=== PATIENT | female | born 2000 | race Caucasian/White ===

== ENCOUNTER 2023-08-24 14:02 | Emergency (ER) | payer OTHER, SELFPAY ==
--- NOTE | ~2023-08-24 | XR_ITS ---
EXAMINATION: XR chest 2V Exam Date/Time: 08/24/2023 15:12 [employer] SPECIALIST HISTORY: palpitations Comparison: None. RESULT: Lines, tubes, and devices: Bilateral breast implants. Lungs and pleura: Clear. Cardiomediastinal silhouette: Normal. Other: No acute osseous or upper abdominal finding. IMPRESSION: No acute cardiopulmonary process. Reviewed, dictated and finalized at location K. SPECIALIST
[2023-08-24 14:05] VITALS: BP 113/71; PULSE 81; RESP 16; TEMP 36.6; O2SAT 100
--- NOTE | 2023-08-24 15:07 | ECG_ITS ---
Measurements Intervals [place] Rate: 80 P: -2 MT: 137 QRS: 51 QRSD: 94 T: 45 QT: 355 QTc: 410 Interpretive Statements SINUS RHYTHM WITH SINUS ARRHYTHMIA NORMAL ECG NO PREVIOUS ECG AVAILABLE FOR COMPARISON Electronically Signed On 08-24-2023 19:18:10 [employer]ISUAL AND ST[employer] ASSOCIATE by Chad Ruiz D.O.
--- NOTE | 2023-08-24 15:32 | ED.GENADULT ---
HPI - General Adult General Chief complaint: Anxiety Stated complaint: anxiety attack Time Seen by Provider: 08/24/23 14:56 History of Present Illness HPI narrative: Patient is a 23-year-old female who presents ER with palpitations. Patient was driving when she started to feel things build up. She felt her heart racing and felt tingling across her body. Short duration. She pulled over. She had something similar happen to her 2 days ago. She has not had issues with this in the past. No history of anxiety. Denies any new stressors at home or work. Denies any change to her sleep pattern. Denies excessive use of stimulants. Reports family history of her father having his heart shocked but unknown as to why. Related Data Allergies Allergy/AdvReac Type Severity Reaction Status Date / Time No Known Allergies Allergy Verified 08/24/23 15:32 Review of Systems Review of Systems: All systems reviewed & are unremarkable except as noted in HPI and below Constitutional: Constitutional: Denies chills, Denies fatigue and Denies fever(s) ENT: Denies nasal congestion and Denies sore throat Cardiovascular: Cardiovascular: Denies chest pain, Reports rapid heart rate and Denies radiating jaw, neck or arm pain Respiratory: Respiratory: Denies cough, Denies dyspnea and Denies wheezing Gastrointestinal: Gastrointestinal: Denies abdominal pain, Denies nausea and Denies vomiting Neurologic: Denies focal weakness, Denies numbness and Denies weakness Comments: Tingling to the whole body. Psychiatric: Psychiatric: Denies anxiety and Denies depression PMF Past Medical History Medical History (Updated 08/24/23 @ 16:45 by Atul Payne MD) Healthy female adult Surgical History Surgical History (Updated 08/24/23 @ 15:35 by Atul Payne MD) History of breast augmentation Course Course Emergency Course: Patient resting comfortably. Labs/imaging/EKG all normal. Recommend follow-up with her primary care physician. Should symptoms recur she may need a Holter monitor. She has been educated in regards to this. Vital Signs Vital signs: Vital Signs Temperature 97.9 F 08/24/23 14:05 Pulse Rate 81 08/24/23 14:05 Respiratory Rate 16 08/24/23 14:05 Blood Pressure 113/71 08/24/23 14:05 Pulse Oximetry 100 08/24/23 14:05 Temperature 97.9 F 08/24/23 14:05 Pulse Rate 81 08/24/23 14:05 Respiratory Rate 16 08/24/23 14:05 Blood Pressure 113/71 08/24/23 14:05 Pulse Oximetry 100 08/24/23 14:05 Medical Decision Making Vital Signs Vital Signs: Vital Signs Temperature 97.9 F 08/24/23 14:05 Pulse Rate 81 08/24/23 14:05 Respiratory Rate 16 08/24/23 14:05 Blood Pressure 113/71 08/24/23 14:05 Pulse Oximetry 100 08/24/23 14:05 Temperature 97.9 F 08/24/23 14:05 Pulse Rate 81 08/24/23 14:05 Respiratory Rate 16 08/24/23 14:05 Blood Pressure 113/71 08/24/23 14:05 Pulse Oximetry 100 08/24/23 14:05 Lab Data 08/24/23 15:38 08/24/23 15:38 Labs: Lab Results 08/24/23 Range/Units 15:38 WBC 7.3 (4.5-10.0) K/mm3 RBC 4.89 (4.2-5.4) M/mm3 Hgb 13.4 (12.0-15.0) g/dL Hct 40.9 (37.0-47.0) % MCV 83.6 (80-100) fl MCH 27.4 (26-34) pg MCHC 32.8 (32-36) g/dl RDW 14.9 H (11.5-14.5) % Plt Count 301 (150-375) k/mm3 MPV 9.5 (7.4-10.4) fl Immature Gran % (Auto) 0.4 (0-0.5) % Neut % (Auto) 72.2 (45.5-73.1) % Lymph % (Auto) 20.2 (18.3-44.2) % Elbert % (Auto) 5.6 (2.6-8.5) % Eos % (Auto) 1.1 (0-4.4) % Baso % (Auto) 0.5 (0.2-1.2) % Lymph # (Auto) 1.47 (0.9-3.2) K/mm3 Elbert # (Auto) 0.4 (0.1-0.6) K/mm3 Eos # (Auto) 0.1 (0-0.3) K/mm3 Baso # (Auto) 0.0 (0.0-0.1) K/mm3 Abs Immat Gran (auto) 0.03 (0.00-0.031) K/mm3 Absolute Neuts (auto) 5.3 (1.3-6.7) K/mm3 Absolute Nucleated RBC 0.0 (0.0-0.012) K/mm3 Nucleated RBC % 0.0 (0.0-0.2) % Sodium 139 (137-145) mm
[2023-08-24 15:42] LABS: Basophils Percent Auto 0.5 % (0.2-1.2); Eosinophils Absolute Auto 0.1 K/mm3 (0-0.3); Eosinophils Percent Auto 1.1 % (0-4.4); Hematocrit 40.9 % (37.0-47.0); Hemoglobin 13.4 g/dL (12.0-15.0); Immature Granulocyte Absolute 0.03 K/mm3 (0.00-0.031); Immature Granulocyte Percent A 0.4 % (0-0.5); Lymphocytes Absolute Auto 1.47 K/mm3 (0.9-3.2); Lymphocytes Percent Auto 20.2 % (18.3-44.2); Mean Corpuscular HGB Conc 32.8 g/dl (32-36); Mean Corpuscular Hemoglobin 27.4 pg (26-34); Mean Corpuscular Volume 83.6 fl (80-100); Mean Platelet Volume 9.5 fl (7.4-10.4); Monocytes Absolute Auto 0.4 K/mm3 (0.1-0.6); Monocytes Percent Auto 5.6 % (2.6-8.5); Neutrophils Absolute Auto 5.3 K/mm3 (1.3-6.7); Neutrophils Percent Auto 72.2 % (45.5-73.1); Platelet Count Result 301 k/mm3 (150-375); Red Blood Count 4.89 M/mm3 (4.2-5.4); Red Cell Distribution Width 14.9 % (11.5-14.5); White Blood Count 7.3 K/mm3 (4.5-10.0)
[2023-08-24 15:52] LABS: Alanine Aminotransferase 13 U/L (6-35); Albumin Level 4.9 g/dL (3.5-5.1); Alkaline Phosphatase 54 U/L (38-126); Anion Gap 11 mmol/L (8-16); Aspartate Amino Transferase 22 U/L (14-36); Bilirubin,Total 0.6 mg/dL (0.2-1.3); Blood Urea Nitrogen 7 mg/dL (7-17); Calcium 9.1 mg/dL (8.4-10.2); Carbon Dioxide 22 mmol/L (22-30); Chloride 106 mmol/L (98-107); Estimated CRCL calculation 104 ml/min; Estimated Glomerular Filt Rate > 60; Glucose 87 mg/dL (65-110); Magnesium 1.9 mg/dL (1.6-2.3); Potassium 3.6 mmol/L (3.4-5.0); Sodium 139 mmol/L (137-145)
[2023-08-24 16:55] VITALS: BP 115/70; PULSE 83; RESP 16; O2SAT 100
== END 2023-08-24 16:57 | disposition home or self-care (01) ==
PROVIDERS: Emergency Provider Emergency Medicine
DX: R00.2 Palpitations (principal)
CPT/HCPCS: 36415; 71046; 80053; 83735; 84443; 85025; 93005; 99283